=== PATIENT | male | born 1945 | race Caucasian/White ===

== ENCOUNTER 2018-05-15 15:10 | Emergency (ER) | payer SELFPAY ==
[2018-05-15 16:22] LABS: ABS Basophils 0 10^3/ul (0-0.2); ABS Eosinophils 0 10^3/ul (0-0.6); ABS Lymphocytes 1.3 10^3/ul (1.0-4.8); ABS Monocytes 0.7 10^3/ul (0-0.8); ABS Neutrophils 4.6 10^3/ul (1.5-7.7); ABS Nucleated RBC 0 10^3/ul; Eosinophil % 0.6 % (0-6); Hematocrit 46 % (42-52); Hemoglobin 15.5 g/dl (14.0-18.0); Lymphocyte % 19.8 % (25-47); Mean Corpuscular HGB Conc 34 g/dl (31-36); Mean Corpuscular Hemoglobin 30 pg (27-31); Mean Corpuscular Volume 88 fL (80-94); Mean Platelet Volume 8.5 um3 (7.4-10.4); Nucleated Red Blood Cells % 0.1; Platelet Count 181 10^3/ul (150-450); Red Blood Count 5.19 10^6/ul (4.00-5.40); Red Cell Distribution Width 13 % (10.5-15); White Blood Count 6.7 10^3/ul (3.5-10.8)
--- NOTE | 2018-05-15 16:47 | ED ---
Dizziness - HPI Summary HPI Summary: This pt is a 73 y/o male presenting to [facility] c/o dizziness worsening since 3 days ago. Pt describes dizziness as room spinning. He notes his dizziness is aggravated with turning his head and additionally states it causes him "congestion." Denies nausea, vomiting, chest pain, SOB, palpitations. He notes a hx of concussion 16 months ago and since then he has been having intermittent dizziness. He has followed up with a neurologist at [facility] for this. PMHx includes concussions, diabetes, prostate CA. - History Of Current Complaint Chief Complaint: EDDizziness Stated Complaint: DIZZINESS Time Seen by Provider: 05/15/18 16:38 Hx Obtained From: Patient Onset/Duration: Still Present Timing: Days Severity Currently: Moderate Character: Room Spinning, Dizzy Aggravating Factor(s): Nothing Alleviating Factor(s): Turning Head Associated Signs And Symptoms: Negative: Nausea, Vomiting, Chest Pain, SOB, Palpitations, Fever, Chills - Allergies/Home Medications Allergies/Adverse Reactions: Allergies Allergy/AdvReac Type Severity Reaction Status Date / Time No Known Allergies Allergy Verified 05/15/18 18:16 PMH/Surg Hx/FS Hx/Imm Hx Endocrine/Hematology History: Reports: Hx Diabetes Denies: Hx Anticoagulant Therapy Cardiovascular History: Reports: Hx Hypertension History: Reports: Other Problems/Disorders - prostate CA with prostatectomy - Cancer History Cancer Type, Location and Year: PROSTATE - Surgical History Surgery Procedure, Year, and Place: prostatectomy Infectious Disease History: No Infectious Disease History: Denies: Traveled Outside the [place] in Last 30 Days - Family History Known Family History: Positive: Cardiac Disease - Social History Alcohol Use: None Substance Use Type: Reports: None Hx Tobacco Use: No Smoking Status (MU): Never Smoked Tobacco Review of Systems Negative: Fever, Chills Negative: Palpitations, Chest Pain Negative: Shortness Of Breath Negative: Vomiting, Nausea Neurological: Other - POS: dizziness All Other Systems Reviewed And Are Negative: Yes Physical Exam - Summary Physical Exam Summary: VITAL SIGNS: Reviewed. GENERAL: Patient is a well-developed and nourished male who is lying comfortable in the stretcher. Patient is not in any acute respiratory distress. HEAD AND FACE: No signs of trauma. No ecchymosis, hematomas or skull depressions. No sinus tenderness. EYES: PERRLA, EOMI x 2, No injected conjunctiva, no nystagmus. EARS: Hearing grossly intact. Ear canals and tympanic membranes are within normal limits. MOUTH: Oropharynx within normal limits. NECK: Supple, trachea is midline, no adenopathy, no JVD, no carotid bruit, no c- spine tenderness, neck with full ROM. CHEST: Symmetric, no tenderness at palpation LUNGS: Clear to auscultation bilaterally. No wheezing or crackles. CVS: Regular rate and rhythm, S1 and S2 present, gallops appreciated. Ejection systolic murmur 4/6. ABDOMEN: Soft, non-tender. No signs of distention. No rebound no guarding, and no masses palpated. Bowel sounds are normal. EXTREMITIES: FROM in all major joints, no edema, no cyanosis or clubbing. NEURO: Alert and oriented x 3. No acute neurological deficits. Speech is normal and follows commands. SKIN: Dry and warm GCS: 15 Triage Information Reviewed: Yes Vital Signs On Initial Exam: Initial Vitals Temp Pulse Resp BP Pulse Ox 98.4 F 70 16 152/76 96 05/15/18 15:12 05/15/18 15:12 05/15/18 15:12 05/15/18 15:12 05/15/18 15:12 Vital Signs Reviewed: Yes Diagnostics - Vital Signs Vital Signs Temp Pulse Resp BP Pulse Ox 05/15/18 15:12 98.4 F 70 16 152/76 96 - Laboratory Lab Results: Lab Results 05/15/18 05/15/18 Range/Units 16:06 16:06 WBC 6.7 (3.5-10.8) 10^3/ul RBC 5.19 (4.00-5.40) 10^6/ul Hgb 15.5 (14.0-18.0) g/dl Hct 46 (42-52) % MCV 88 (80-94) fL MCH 30 (27-31) pg MCHC 34 (31-36) g/dl RDW 13 (10.5-15) % Plt Count 181 (150-450) 10^3/ul MPV 8.5 (7.4-10.4) um3 Neut % (Auto) 68.7 (38-83) % Lymph % (Auto) 19.8 L (25-47) % [place] % (Auto) 10.2 H (0-7) % Eos % (Auto) 0.6 (0-6) % Baso % (Auto) 0.7 (0-2) % Absolute Neuts (auto) 4.6 (1.5-7.7) 10^3/ul Absolute Lymphs (auto) 1.3 (1.0-4.8) 10^3/ul Absolute Monos (auto) 0.7 (0-0.8) 10^3/ul Absolute Eos (auto) 0 (0-0.6) 10^3/ul Absolute Basos (auto) 0 (0-0.2) 10^3/ul Absolute Nucleated RBC 0 10^3/ul Nucleated RBC % 0.1 Sodium 137 (135-145) mmol/L Potassium 4.3 (3.5-5.0) mmol/L Chloride 104 (101-111) mmol/L Carbon Dioxide Pending Anion Gap Pending BUN Pending Creatinine Pending Est GFR ( Amer) Pending Est GFR (Non-Af Amer) Pending BUN/Creatinine Ratio Pending Glucose Pending Calcium Pending Magnesium Pending Total Bilirubin Pending AST Pending ALT Pending Alkaline Phosphatase Pending Total Creatine Kinase Pending Troponin I 0.00 (<0.04) ng/mL C-Reactive Protein Pending Total Protein Pending Albumin Pending Globulin Pending Albumin/Globulin Ratio Pending TSH Pending Serum Alcohol Pending Result Diagrams: 05/15/18 16:06 05/15/18 16:06 Lab Statement: Any lab studies that have been ordered have been reviewed, and results considered in the medical decision making process. - Radiology Chest XR Xray Interpretation: No Acute Changes - IMPRESSION: No radiographic evidence of acute cardiopulmonary disease. Dr. Daily has reviewed this radiology report. Radiology Interpretation Completed By: Radiologist - CT Brain CT CT Interpretation: No Acute Changes - IMPRESSION: Stable chronic findings described above without acute intracranial abnormality that would account for the patient's current clinical presentation. Dr. Daily has reviewed this radiology report. CT Interpretation Completed By: Radiologist - EKG 15:24 Cardiac Rate: NL - at 67 bpm EKG Rhythm: Sinus Rhythm EKG Interpretation: No ST elevations. Re-Evaluation - Re-Evaluation First Eval Re-Evaluation Time: 18:23 Change: Improved Comment: I reviewed the brain CT, chest XR, and labs with the pt. I ambulated the pt and he was able to ambulate without any ataxia or difficulty. Pt will be discharged home. Dizzy Course/Dx - Course Assessment/Plan: This patient is a 73-year-old male who presents to the emergency room with a chief complaint of dizziness. The patient reports that the room is spinning. The patient reports that he has been having the symptoms intermittently for the last year and a half after he sustained a head injury. Neurologic exam without any significant abnormality. The patient is able to ambulate well without any ataxia. Therefore no suspicion for a posterior stroke. Test results without any significant abnormality. Head CT impression: A stable chronic findings and no acute interconnected abnormality that would account for the patients current clinical presentation. Chest x-ray impression : No radiographic evidence of acute cardiopulmonary disease. In the ED course the patient was given meclizine and Ativan for the dizziness and his symptoms have improved. I ambulated the patient again and the patient has a good steady walk without any ataxia. Therefore the patient was discharged home with follow- up with PCP. I discussed all the findings and test results with the patient. Patient was instructed to return to the emergency room immediately if any of the symptoms return or worsens. Plan of care was discussed with the patient and understands and agrees. All questions were answered at patient satisfaction. There were no further complaints or concerns. Lung exam before discharge: CTA B /L. Good air exchange. No wheezing or crackles heard. CVS: S1 and S2 present. No murmurs appreciated. Patient is alert and oriented x 3. Patient is hemodynamically stable. Patient will be discharged home with follow up PCP in the next 2-3 days - Diagnoses Differential Diagnosis/HQI/PQRI: Anxiety, Benign Paroxysmal Positional Vertigo, Dysrhythmia, Labyrinthitis, Meniere's Disease Provider Diagnoses: Vertigo Discharge - Sign-Out/Discharge Documenting (check all that apply): Patient Departure - Discharge - Discharge Plan Condition: Stable Disposition: HOME Prescriptions: Meclizine TAB* [Antivert 12.5 TAB*] 25 mg PO TID PRN #30 tab PRN Reason: Vertigo Patient Education Materials: Vertigo (ED) Referrals: Moe Overton MD [Primary Care Provider] - Additional Instructions: FOLLOW UP WITH YOUR PRIMARY CARE PROVIDER WITHIN ONE WEEK FOR HIGH BLOOD PRESSURE NOTED TODAY. RETURN TO THE ED FOR ANY NEW OR WORSENING SYMPTOMS. - Billing Disposition and Condition Condition: STABLE Disposition: Home - Attestation Statements Document Initiated by Scribe: Yes Documenting Scribe: Isis Conner Provider For Whom Moon is Documenting (Include Credential): Robin Daily MD Scribe Attestation: Isis Ramirez, scribed for Robin Daily MD on 05/16/18 at 1044. Scribe Documentation Reviewed: Yes Provider Attestation: The documentation as recorded by the Iiss hammond accurately reflects the service I personally performed and the decisions made by me, Robin Daily MD
[2018-05-15] MEDS ORDERED: Meclizine TAB* 12.5 MG PO ONE (16:50)
[2018-05-15] MEDS ORDERED: LORazepam TAB(*) 1 MG PO ONE (16:50)
--- NOTE | 2018-05-15 16:51 | RAD ---
INDICATION: Dizziness COMPARISON: CT of the brain December 25, 2016 TECHNIQUE: Contiguous axial sections of the brain were obtained from the skull base to the vertex without contrast. FINDINGS: The ventricles, cisterns and sulci are within normal limits. Overlying the expected location of the right transverse sinus is a 1.1 cm low-attenuation focus (axial image 12) that appears to have been present on the December 25, 2016 CT of the brain. Likely this is a meningioma or arachnoid granulation. The guzman-white matter differentiation is adequately maintained and there is no sulcal effacement. No significant focal abnormality or mass effect is present. There is no evidence for intracranial hemorrhage. No significant focal osseous abnormality is present. The visualized portion of the paranasal sinuses appear clear. The mastoid air cells are well aerated bilaterally. IMPRESSION: Stable chronic findings described above without acute intracranial abnormality that would account for the patient's current clinical presentation.
--- NOTE | 2018-05-15 16:53 | RAD ---
INDICATION: Dizziness COMPARISON: None TECHNIQUE: PA and lateral views of the chest were obtained. FINDINGS: The heart and mediastinum are normal in size and contour. The lungs are grossly clear. There is no evidence of large pleural effusion. Degenerative changes of the thoracic spine includes loss of intervertebral disc height and anterior marginal osteophyte formation. There is no radiographic evidence of free air beneath the diaphragm IMPRESSION: No radiographic evidence of acute cardiopulmonary disease.
[2018-05-15 17:59] LABS: EGFR Non-African American 79.6 (>60)
[2018-05-15 18:33] VITALS: BP 136/82
[2018-05-15 18:36] LABS: Urine Appearance Clear; Urine Blood Negative (Negative); Urine Color Straw; Urine Ketones Negative (Negative); Urine Protein Negative (Negative); Urine Specific Gravity 1.004 (1.010-1.030); Urine Urobilinogen Negative (Negative)
== END 2018-05-15 18:32 | disposition home or self-care (01) ==
LOC: ED 15:10
DX: R42 Dizziness and giddiness (principal); I10 Essential (primary) hypertension; E11.9 Type 2 diabetes mellitus without complications
CPT/HCPCS: 36415; 70450; 71046; 80053; 80320; 81003; 82550; 83605; 83735; 83880; 84443; 84484; 85025; 86140; 93005; 99282; A9270-GY; G0480

== ENCOUNTER 2019-01-09 09:32 | Emergency (ER) | payer MEDICARE, OTHER ==
[2019-01-09 10:19] LABS: ABS Basophils 0 10^3/ul (0-0.2); ABS Eosinophils 0.1 10^3/ul (0-0.6); ABS Lymphocytes 2.1 10^3/ul (1.0-4.8); ABS Monocytes 0.8 10^3/ul (0-0.8); ABS Neutrophils 3.9 10^3/ul (1.5-7.7); ABS Nucleated RBC 0 10^3/ul; Eosinophil % 1.1 %; Hematocrit 47 % (42-52); Hemoglobin 15.7 g/dL (14.0-18.0); Mean Corpuscular HGB Conc 34 g/dL (31-36); Mean Corpuscular Hemoglobin 30 pg (27-31); Mean Corpuscular Volume 88 fL (80-94); Mean Platelet Volume 8.6 fL (7.4-10.4); Nucleated Red Blood Cells % 0.1; Platelet Count 196 10^3/uL (150-450); Red Cell Distribution Width 14 % (10.5-15)
[2019-01-09 10:38] LABS: Albumin 4.4 g/dL (3.2-5.2); Albumin/Globulin Ratio 1.6 (1-3); BUN/Creatinine Ratio 16.3 (8-20); Calcium 9.8 mg/dL (8.6-10.3); EGFR African American 105.2 (>60); EGFR Non-African American 86.9 (>60); Globulin 2.8 g/dL (2-4); Potassium 3.7 mmol/L (3.5-5.0); Total Bilirubin 1.2 mg/dL (0.2-1.0); Total Protein 7.2 g/dL (6.4-8.9)
[2019-01-09 11:00] VITALS: BP 121/82
--- NOTE | 2019-01-09 11:00 | ED ---
HPI Cardiac - HPI Summary HPI Summary: Patient is a 74-year-old male who presents to the ED from the ID clinic. He states he was sent here to assess an abnormality on a routine EKG that was obtained during his physical this morning. An EKG he was found to be in trigeminy. He denies any symptoms. Denies CP, SOB, feelings of palpitations, sweats, chills, headaches, visual changes. He states he is only here because they asked him to be evaluated here. He has never had a history of chest pain, palpitations or shortness of breath in the past. Remote history of prostate carcinoma. - History of Current Complaint Chief Complaint: EDGeneral Stated Complaint: HE[facility] ISSUE [facility] Time Seen by Provider: 01/09/19 09:43 Hx Obtained From: Patient Onset/Duration: Started Hours Ago Initial Severity: Mild Current Severity: Mild Pain Intensity: 0 Pain Scale Used: 0-10 Numeric Chest Pain Radiates: No Aggravating Factor(s): Nothing Alleviating Factor(s): Nothing - Risk Factors Pulmonary Embolism Risk Factors: Negative Cardiac Risk Factors: Negative Atrial Fibrillation Risk Factors: Negative - Allergy/Home Medications Allergies/Adverse Reactions: Allergies Allergy/AdvReac Type Severity Reaction Status Date / Time No Known Allergies Allergy Verified 05/15/18 18:16 Home Medications: Home Medications NK [No Home Medications Reported] 01/09/19 [History Confirmed 01/09/19] PMH/Surg Hx/FS Hx/Imm Hx Previously Healthy: Yes Endocrine/Hematology History: Reports: Hx Diabetes Denies: Hx Anticoagulant Therapy Cardiovascular History: Reports: Hx Hypertension History: Reports: Other Problems/Disorders - prostate CA with prostatectomy - Cancer History Cancer Type, Location and Year: PROSTATE - Surgical History Surgery Procedure, Year, and Place: prostatectomy - Immunization History Hx Pertussis Vaccination: No Immunizations Up to Date: Yes Infectious Disease History: No Infectious Disease History: Denies: Traveled Outside the [place] in Last 30 Days - Family History Known Family History: Positive: Cardiac Disease - Social History Occupation: Unemployed Lives: With Family Alcohol Use: None Hx Substance Use: No Substance Use Type: Reports: None Hx Tobacco Use: No Smoking Status (MU): Never Smoked Tobacco Review of Systems Constitutional: Negative Negative: Fever, Chills, Fatigue Negative: Palpitations, Chest Pain Negative: Shortness Of Breath, Cough Negative: Abdominal Pain, Vomiting, Diarrhea, Nausea Negative: Arthralgia, Myalgia Negative: Headache Negative: Anxious All Other Systems Reviewed And Are Negative: Yes Physical Exam Triage Information Reviewed: Yes Vital Signs On Initial Exam: Initial Vitals Temp Pulse Resp BP Pulse Ox 96.9 F 72 16 154/80 96 01/09/19 09:33 01/09/19 09:33 01/09/19 09:33 01/09/19 09:33 01/09/19 09:33 Vital Signs Reviewed: Yes Appearance: Positive: Well-Appearing Skin: Positive: Warm, Skin Color Reflects Adequate Perfusion Head/Face: Positive: Normal Head/Face Inspection Eyes: Positive: EOMI, Conjunctiva Clear Neck: Positive: Supple, No Lymphadenopathy Respiratory/Lung Sounds: Positive: Clear to Auscultation, Breath Sounds Present Cardiovascular: Positive: RRR, Pulses are Symmetrical in both Upper and Lower Extremities Musculoskeletal: Positive: Normal, Strength/ROM Intact Neurological: Positive: Speech Normal Psychiatric: Positive: Affect/Mood Appropriate AVPU Assessment: Alert Diagnostics - Vital Signs Vital Signs Temp Pulse Resp BP Pulse Ox 01/09/19 10:25 69 19 121/72 90 01/09/19 10:00 69 18 94 01/09/19 09:58 18 01/09/19 09:56 9 136/66 01/09/19 09:33 96.9 F 72 16 154/80 96 - Laboratory Lab Results: Lab Results 01/09/19 01/09/19 Range/Units 10:04 10:04 WBC 7.0 (3.5-10.8) 10^3/uL RBC 5.30 (4.18-5.48) 10^6 /uL Hgb 15.7 (14.0-18.0) g/dL Hct 47 (42-52) % MCV 88 (80-94) fL MCH 30 (27-31) pg MCHC 34 (31-36) g/dL RDW 14 (10.5-15) % Plt Count 196 (150-450) 10^3/uL MPV 8.6 (7.4-10.4) fL Neut % (Auto) 56.3 % Lymph % (Auto) 30.0 % [place] % (Auto) 12.0 % Eos % (Auto) 1.1 % Baso % (Auto) 0.6 % Absolute Neuts (auto) 3.9 (1.5-7.7) 10^3/ul Absolute Lymphs (auto) 2.1 (1.0-4.8) 10^3/ul Absolute Monos (auto) 0.8 (0-0.8) 10^3/ul Absolute Eos (auto) 0.1 (0-0.6) 10^3/ul Absolute Basos (auto) 0 (0-0.2) 10^3/ul Absolute Nucleated RBC 0 10^3/ul Nucleated RBC % 0.1 Sodium 136 (135-145) mmol/L Potassium 3.7 (3.5-5.0) mmol/L Chloride 101 (101-111) mmol/L Carbon Dioxide 23 (22-32) mmol/L Anion Gap 12 H (2-11) mmol/L BUN 14 (6-24) mg/dL Creatinine 0.86 (0.67-1.17) mg/dL Est GFR ( Amer) 105.2 (>60) Est GFR (Non-Af Amer) 86.9 (>60) BUN/Creatinine Ratio 16.3 (8-20) Glucose 128 H (70-100) mg/dL Calcium 9.8 (8.6-10.3) mg/dL Total Bilirubin 1.20 H (0.2-1.0) mg/dL AST 16 (13-39) U/L ALT 15 (7-52) U/L Alkaline Phosphatase 63 (34-104) U/L Troponin I 0.00 (<0.04) ng/mL Total Protein 7.2 (6.4-8.9) g/dL Albumin 4.4 (3.2-5.2) g/dL Globulin 2.8 (2-4) g/dL Albumin/Globulin Ratio 1.6 (1-3) Result Diagrams: 01/09/19 10:04 01/09/19 10:04 Lab Statement: Any lab studies that have been ordered have been reviewed, and results considered in the medical decision making process. Disposition - Course Course Of Treatment: During the course of treatment, the patient is evaluated for a possible trigeminy on the EKG he had obtained at the ID clinic prior to arrival. On examination, he appears well, nontoxic and denies any symptoms. Rate of 75. Sinus or ectopic atrial rhythm, multiple ventricular premature complexes. No trigeminy is noted. Labs obtained which show a troponin of 0.00. He will be discharged with follow-up to cardiology. - Differential Dx - Cardiopulmonary Differential Diagnoses - Cardiopulmonary: Other - Multiple ventricular premature complex - Diagnoses Provider Diagnoses: Heart abnormality Discharge - Sign-Out/Discharge Documenting (check all that apply): Patient Departure Patient Received Moderate/Deep Sedation with Procedure: No - Discharge Plan Condition: Stable Disposition: HOME Referrals: Tuan Palacios MD [Medical Doctor] - No Primary Care Phys,NOPCP [Primary Care Provider] - Additional Instructions: Please follow up with cardiology [facility] If you develop any symptoms, return to the ED - Billing Disposition and Condition Condition: STABLE Disposition: Home
== END 2019-01-09 10:59 | disposition home or self-care (01) ==
LOC: ED 09:32
DX: R00.8 Other abnormalities of heart beat (principal); E11.9 Type 2 diabetes mellitus without complications; I10 Essential (primary) hypertension; Z85.46 Personal history of malignant neoplasm of prostate
CPT/HCPCS: 36415; 80053; 84484; 85025; 93005; 99282

== ENCOUNTER 2019-05-07 07:55 | Day surgery (SDC) | payer OTHER ==
[~2019-05-07 07:55] MED LIST: Buffered Lidocaine 1% SYRIN* 1 ML/SYRINGE INTRADERM ONE
[2019-05-07] MEDS ORDERED: Neomycin/Polymy/Dex OPTH.SUSP* MAXITROL 0.1% 5 ML ONE (09:55)
[2019-05-07] MEDS ORDERED: Proparacaine 0.5% OPHTH.SOL* 15 ML BTL ONE (09:55)
[2019-05-07] MEDS ORDERED: Lidocaine 2% w/ EPI 1:200,000* 20 ML SDV VIAL ONE (09:55)
[2019-05-07] MEDS ORDERED: Phenylephrine OPHTH SOL 2.5%* 2 ML ONE (09:55)
[2019-05-07] MEDS ORDERED: Lidocaine 1% MPF ** 5 ML VIAL ONE (09:55)
[2019-05-07] MEDS ORDERED: Povidone Iodine 5% OPTH* 30 ML BTL ONE (09:55)
[2019-05-07] MEDS ORDERED: acetaZOLAMIDE TAB* 250 MG ONE (09:55)
[2019-05-07] MEDS ORDERED: Ketorolac 0.5% OPHTH (NF) 0.5 % 5 ML BTL ONE (09:55)
[2019-05-07] MEDS ORDERED: Cyclopentolate 1% OPTH.SOL* 2 ML BTL ONE (09:55)
--- NOTE | 2019-05-07 10:35 | OP ---
OPERATIVE NOTE: DATE OF OPERATION: 05/07/19 DATE OF : 45 SURGEON: Jaden John MD PREOPERATIVE DIAGNOSIS: Cataract, right eye. POSTOPERATIVE DIAGNOSIS: Cataract, right eye. OPERATIVE PROCEDURE: Extracapsular cataract extraction with intraocular lens implant, right eye. PROCEDURE: The patient was brought to the operating room after being given 1/2% Alcaine with epineph rine drops in the preoperative area. The eye was prepped and draped in the usual sterile fashion. S terile drape and eyelid speculum were placed. Again, topical 1/2% Alcaine with epinephrine was given . A paracentesis incision was made at the 9 o'clock position with the No.75 blade. Clear cornea inc ision 2.2 x 2.2-mm was created at the 12 o'clock position starting at the anterior limbus using the 2 .2-mm keratome. The anterior chamber was irrigated with 0.4 mL of 1% non-preservative intracameral l idocaine and filled with DisCoVisc. A capsulorrhexis was completed using the cystotome and the Utrat a forceps. Hydrodissection was performed with balanced salt solution. The lens nucleus was removed w ith the Phacoemulsification handpiece without incident. Cortex was removed with the irrigation-aspir ation handpiece. The capsular bag was re-inflated using DisCoVisc and an [id number] implant was inser codey with the shooter. The irrigation-aspiration handpiece was used to remove all residual DisCoVisc. The eye was refilled with balanced salt solution and the wound checked and found to be watertight. Topical Maxitrol drops were given. [id number]/[facility] #: [id number]
[2019-05-07 10:53] VITALS: BP 141/73
== END 2019-05-07 10:36 | disposition home or self-care (01) ==
LOC: OREAST 07:55
PROVIDERS: ATTEND Specialist
DX: H25.811 Combined forms of age-related cataract, right eye (principal); E11.9 Type 2 diabetes mellitus without complications; R01.1 Cardiac murmur, unspecified; C61 Malignant neoplasm of prostate; Z87.442 Personal history of urinary calculi
CPT/HCPCS: A9270-GY; V2632